=== PATIENT | female | born 1990 | race Caucasian/White ===

== ENCOUNTER 2018-05-06 17:33 | Emergency (ER) | payer MEDICAID, OTHER | END 2018-05-06 20:29 | disposition home or self-care (01) | LOC: FTE 17:33 | DX: O26.891 Other specified pregnancy related conditions, first trimester (principal); R10.84 Generalized abdominal pain; Z3A.14 14 weeks gestation of pregnancy | CPT/HCPCS: 76805; 99284-25 ==

== ENCOUNTER 2018-10-07 09:03 | Outpatient (CLI) | payer SELFPAY ==
[2018-10-07] MEDS ORDERED: BUTORPHANOL 2 MG INJ IV (11:30)
[2018-10-07] MEDS ORDERED: CARBOPROST 250 MCG INJ IM (11:30)
[2018-10-07] MEDS ORDERED: AMPICILLIN 2 GM/NS (PMX) 100 ML IV (11:30)
[2018-10-07] MEDS ORDERED: OXYTOCIN 30 UNITS/LR 500 ML IV ×3 (11:30)
[2018-10-07] MEDS ORDERED: LIDOCAINE 1% (MPF) 30 ML INJ INJ (11:30)
[2018-10-07] MEDS ORDERED: METHYLERGONOVINE 0.2 MG INJ IM (11:30)
[2018-10-07] MEDS ORDERED: MISOPROSTOL 200 MCG TAB PR (11:30)
[2018-10-07 11:33] LABS: ADD MAN DIFF? NO
[2018-10-07 11:35] LABS: WHITE BLOOD COUNT 9.9 10^3/ul (4.8-10.8)
[2018-10-07 11:35] LABS: BASOPHIL # 0.1 10^3/ul (0.0-0.1); BASOPHILS % 0.7 % (0.0-2.0); EOSINOPHILS # 0.1 10^3/ul (0.0-0.5); EOSINOPHILS % 0.6 % (0.0-7.0); HEMATOCRIT 31.1 % (37.0-47.0); HEMOGLOBIN 10.3 g/dl (12.0-16.0); LYMPHOCYTES # 2.1 10^3/ul (0.8-2.9); MEAN CORPUSCULAR HEMOGLOBIN 29.1 pg (29.0-33.0); MEAN CORPUSCULAR HGB CONC 33.1 g/dl (32.0-37.0); MEAN CORPUSCULAR VOLUME 87.9 fl (82.0-101.0); MEAN PLATELET VOLUME 10.3 fl (7.4-10.4); MONOCYTE # 0.9 10^3/ul (0.3-0.9); NEUTROPHIL # 6.8 10^3/ul (1.6-7.5); NEUTROPHILS % 68.4 % (39.0-77.0); PLATELET COUNT 257 10^3/UL (140-415); RED BLOOD COUNT 3.54 10^6/ul (4.20-5.40); RED CELL DISTRIBUTION WIDTH 12.2 % (11.5-14.5)
[2018-10-07 11:46] LABS: INR 0.96; PROTIME 12.9 Sec (11.9-14.9)
[2018-10-07 11:47] LABS: PARTIAL THROMBOPLASTIN TIME 29.3 Sec (23.0-35.0)
[2018-10-07] MEDS: LACTATED RINGER'S 1,000 ML IV ×2 (12:07→17:23)
[2018-10-07] MEDS: AZITHROMYCIN IVPB (12:07)
[2018-10-07] MEDS: SOD CHLORIDE 0.9% IVPB (12:07)
[2018-10-07 12:09] LABS: AMPHETAMINE/METHAMPHETAMINE NEGATIVE (NEGATIVE); BARBITURATES NEGATIVE (NEGATIVE); BENZODIAZEPINES NEGATIVE (NEGATIVE); CANNABINOIDS NEGATIVE (NEGATIVE); COCAINE NEGATIVE (NEGATIVE); OPIATES NEGATIVE (NEGATIVE)
[2018-10-07] MEDS ORDERED: AMPICILLIN 1 GM/NS (PMX) 50 ML IV (13:30)
[2018-10-07] MEDS: AMPICILLIN 2 GM/NS (PMX) 100 ML IV (14:57)
[2018-10-07] MEDS: OXYTOCIN 30 UNITS/LR 500 ML IV (15:18)
[2018-10-07] MEDS: AMPICILLIN 1 GM/NS (PMX) 50 ML IV ×2 (15:30→19:20)
[2018-10-07 19:15] LABS: AMPHETAMINE/METHAMPHETAMINE Negative (NEGATIVE); BARBITURATES Negative (NEGATIVE); BENZODIAZEPINES Negative (NEGATIVE); CANNABINOIDS Negative (NEGATIVE); COCAINE Negative (NEGATIVE); OPIATES Negative (NEGATIVE)
[2018-10-07 19:29] LABS: RAPID PLASMA REAGIN NONREACTIVE (NR)
== END 2018-10-07 21:00 | disposition home or self-care (01) ==
LOC: OBT 09:03 → L-D 09:05 → OBT 09:18 → L-D 09:18 → OBT 21:00
DX: O62.9 Abnormality of forces of labor, unspecified (principal); O99.513 Diseases of the respiratory system complicating pregnancy, third trimester; J45.909 Unspecified asthma, uncomplicated; Z3A.38 38 weeks gestation of pregnancy; Z86.11 Personal history of tuberculosis
CPT/HCPCS: 76815; 80307; 85025; 85610; 85730; 86592; 86850; 86900; 86901